=== PATIENT | male | born 1980 | race African-American/Black ===

== ENCOUNTER 2018-11-11 09:51 | Emergency (ER) | payer OTHER ==
[~2018-11-11] VITALS: Ht 190.5 cm; Wt 90.7 kg
[2018-11-11] MEDS ORDERED: IBUPROFEN 600 MG TABLET PO ONE (12:00)
[2018-11-11 13:09] VITALS: BP 161/42
== END 2018-11-11 13:15 | disposition home or self-care (01) ==
LOC: EMS 09:52
DX: S16.1XXA Strain of muscle, fascia and tendon at neck level, initial encounter (principal); F17.210 Nicotine dependence, cigarettes, uncomplicated; Z88.0 Allergy status to penicillin; V49.9XXA Car occupant (driver) (passenger) injured in unspecified traffic accident, initial encounter; Y93.89 Activity, other specified; Y92.488 Other paved roadways as the place of occurrence of the external cause; Y99.8 Other external cause status
CPT/HCPCS: 72125